=== PATIENT | male | born 1935 | race Caucasian/White ===

== ENCOUNTER 2022-01-25 18:52 | Inpatient (IN) | payer OTHER ==
[~2022-01-25] VITALS: Ht 172.7 cm; Wt 63.0 kg
--- NOTE | 2022-01-25 19:01 | NUR ---
[id number] FROM HOME PER EMS REPORT NEIGHBOR CALLED C/O WEAKNESS X1 WEEK. PT A/OX4. RESP EVEN AND NON LABORED ON R/A. CONNECTED PT TO POX AND MONITOR. SAFETY MEASURES IN PLACE.
[2022-01-25] MEDS ORDERED: IV NS 0.9% 1,000 ML BAG IV ONE (19:30)
--- NOTE | 2022-01-25 19:40 | NUR ---
COVID ANTIGEN SWAB COLLECTED AND SENT TO LAB
--- NOTE | 2022-01-25 19:40 | NUR ---
LAC #20G S/L BLOOD COLLECTED AND SENT TO LAB. PT NOT ABLE TO URINATE AT THIS TIME. WILL F/U
--- NOTE | 2022-01-25 19:41 | NUR ---
US TECH AT PT'S BEDSIDE
--- NOTE | 2022-01-25 19:55 | NUR ---
PT TAKEN TO CT VIA JESSICA
[2022-01-25] MEDS ORDERED: MAGNESIUM HYDROXIDE 30 ML UDC PO PRN (20:00)
[2022-01-25] MEDS ORDERED: MAG HYDROX/AL HYDROX/SIMETH 30 ML UDC PO PRN (20:00)
[2022-01-25] MEDS ORDERED: ONDANSETRON HCL/PF 4 MG/2 ML VIAL IVP PRN (20:00)
[2022-01-25] MEDS ORDERED: ZOLPIDEM TARTRATE 5 MG TABLET PO PRN (20:00)
[2022-01-25] MEDS ORDERED: ACETAMINOPHEN 325 MG TABLET PO PRN (20:00)
[2022-01-25] MEDS ORDERED: Z GUARD REMEDY 4 OZ OINT TP PRN (20:00)
[2022-01-25 20:02] LABS: BASOPHILS % (AUTO) 0.1 % (0.0-2.0); HEMATOCRIT 35 % (39-51); HEMOGLOBIN 12.1 g/dL (13.5-17.5); LYMPHOCYTES # (AUTO) 0.7 K/uL (0.8-4.8); LYMPHOCYTES % (AUTO) 4.7 % (20.0-44.0); MEAN CORPUSCULAR HGB CONC 35 g/dl (31.0-36.0); MEAN CORPUSCULAR VOLUME 94 fL (80-96); MONOCYTES # (AUTO) 0.6 K/uL (0.1-1.30); MONOCYTES % (AUTO) 3.8 % (2.0-12.0); NEUTROPHILS # (AUTO) 13.7 K/uL (1.8-8.9); NEUTROPHILS % (AUTO) 91.4 % (43.0-81.0); RED BLOOD CELL COUNT(AUTO) 3.69 MIL/uL (4.5-6.0)
[2022-01-25 20:10] LABS: CALCIUM, SERUM 8.6 mg/dL (8.5-10.1); CARBON DIOXIDE 23 mmol/L (21-32); CHLORIDE 92 mmol/L (98-107); GLUCOSE 143 mg/dL (74-106); SODIUM SERUM 134 mmol/L (136-145)
--- NOTE | 2022-01-25 20:19 | NUR ---
potassium 2.1 bun 91
[2022-01-25 20:22] LABS: PLATELET COUNT (AUTO) 285 K/uL (150-450)
[2022-01-25 20:24] LABS: ALANINE AMINOTRANSFERASE 146 U/L (12-78); ALBUMIN 1.8 g/dL (3.4-5.0); ALKALINE PHOSPHATASE 495 U/L (46-116); ASPARTATE AMINOTRANSFERASE 214 U/L (15-37); BILIRUBIN,DIRECT 26.2 mg/dL (0.0-0.2); BILIRUBIN,TOTAL 33.3 mg/dL (0.2-1.0); TOTAL PROTEIN, SERUM 6.5 g/dL (6.4-8.2)
[2022-01-25 20:26] LABS: POTASSIUM 2.1 mmol/L (3.5-5.1); UREA NITROGEN, BLOOD 91 mg/dL (7-18)
[2022-01-25] MEDS ORDERED: POTASSIUM CL. PREMIX PERIPHER. 50 ML IV SCH (20:30)
[2022-01-25] MEDS ORDERED: LIDOCAINE 2% JEL UROJET 10 ML MM ONE (20:33)
--- NOTE | 2022-01-25 20:43 | NUR ---
URINE COLLECTED AND SENT TO LAB
[2022-01-25] MEDS: POTASSIUM CL. PREMIX PERIPHER. 50 ML IV SCH ×3 (20:57→23:12)
[2022-01-25 21:05] LABS: BILIRUBIN,URINE LARGE (NEGATIVE); LEUKOCYTE ESTERASE ,URINE NEGATIVE (NEGATIVE); NITRITE, URINE NEGATIVE (NEGATIVE); PH,URINE 5.5 (5.0-8.0); PROTEIN,URINE 30 mg/dl (NEGATIVE); UGLUCOSE 100 MG/DL mg/dL (NEGATIVE)
[2022-01-25 21:20] LABS: COLOR,URINE BROWN (YELLOW)
[2022-01-25 21:25] LABS: BAND % (MANUAL) 1 % (0.0-5.0); LYMPHOCYTES % (MANUAL) 3 % (16-48); MONOCYTES % (MANUAL) 1 % (0-11.0); NEUTROPHILS % (MANUAL) 95 (42-76)
[2022-01-25 21:29] LABS: BACTERIA,URINE 1+ /HPF (None Seen); WBC,URINE 0-2 /HPF (0-3)
--- NOTE | 2022-01-25 22:10 | NUR ---
RAC #20G S/L PATENT AND INTACT
[2022-01-25] MEDS ORDERED: METO200T49 PO (22:24)
[2022-01-25] MEDS ORDERED: POTASSIUM CL. PREMIX PERIPHER. 50 ML ONE (22:54)
[2022-01-26] MEDS ORDERED: POTASSIUM CL. PREMIX PERIPHER. 50 ML ONE (00:13)
[2022-01-26] MEDS: POTASSIUM CL. PREMIX PERIPHER. 50 ML IV SCH ×6 (00:14→22:49)
--- NOTE | 2022-01-26 00:29 | NUR ---
LORRAINE LONDON DNP AT PT'S BEDSIDE FOR HOMAAL
[2022-01-26] MEDS ORDERED: PIPERACILLIN /TAZOBACTAM 3.375 G in IV D5W 50 ML IV ONE (01:00)
[2022-01-26] MEDS ORDERED: PIPERACILLIN /TAZOBACTAM 3.375 G VIAL IV ONE (01:01)
--- NOTE | 2022-01-26 01:08 | NUR ---
REPOPRT GIVEN TO MARILU IN [place].
[2022-01-26] MEDS: IV NS 0.9% 1,000 ML IV PRN ×2 (02:40→11:02)
--- NOTE | 2022-01-26 02:45 | NUR ---
PT transferred to [facility] room 109 via acls protocol. VSS. All belongings with PT.
--- NOTE | 2022-01-26 02:50 | NUR ---
RN NOTES ADMITTED A 86 Y/O MALE PATIENT FROM ER VIA RSTEELE. PATIENT IS A/O X 3 ABLE TO MAKE NEEDS KNOWN. ON ROOM AIR SATING 99% NO SOB NO DISTRESS NOTED AT THIS TIME. SAFELY TRANSFER PATIENT TO BED. COMPLETE BODY ASSESSMENT DONNE. SKIN IS INTACT. BELONGINGS CHECKED AND RECORDED. IV ACCESS AT L AC# 20 PATENT. IV FLUIDS NS 25CC/HR STARTED. ALL SAFETY MEASURES IN PLACE. HOB ELEVATED. CALL LIGHT WITHIN REACH. WILL CLOSELY MONITOR THE PATIENT
[2022-01-26 04:00] VITALS: BP 145/72
[2022-01-26 06:36] LABS: BASOPHILS % (AUTO) 0.1 % (0.0-2.0); HEMATOCRIT 33 % (39-51); HEMOGLOBIN 11.3 g/dL (13.5-17.5); LYMPHOCYTES # (AUTO) 0.5 K/uL (0.8-4.8); LYMPHOCYTES % (AUTO) 4.1 % (20.0-44.0); MEAN CORPUSCULAR HGB CONC 34 g/dl (31.0-36.0); MEAN CORPUSCULAR VOLUME 95 fL (80-96); MONOCYTES # (AUTO) 0.4 K/uL (0.1-1.30); MONOCYTES % (AUTO) 3.6 % (2.0-12.0); NEUTROPHILS # (AUTO) 11.4 K/uL (1.8-8.9); NEUTROPHILS % (AUTO) 92.2 % (43.0-81.0); PLATELET COUNT (AUTO) 226 K/uL (150-450); RED BLOOD CELL COUNT(AUTO) 3.48 MIL/uL (4.5-6.0); WHITE BLOOD COUNT (AUTO) 12.4 K/uL (4.3-11.0)
[2022-01-26 06:46] LABS: SERUM AMMONIA 36 umol/L (11-32)
--- NOTE | 2022-01-26 06:52 | NUR ---
RN NOTES PATIENT REMAINS STABLE NO SIGNIFICANT CHANGES. IV ACCESS PATENT WITH IV FLUIDS RUNNING AT 125CC/HR. NO SOB NO DISTRESS. ALL SAFETY MEASURES IN PLACE HOB ELEVATED. CALL LIGHT WITHIN REACH. WILL ENDORSED TO MORNING SHIFT FOR NIKKI
[2022-01-26 06:58] LABS: ALANINE AMINOTRANSFERASE 130 U/L (12-78); ALBUMIN 1.5 g/dL (3.4-5.0); ALKALINE PHOSPHATASE 428 U/L (46-116); ASPARTATE AMINOTRANSFERASE 193 U/L (15-37); BILIRUBIN,TOTAL 28.8 mg/dL (0.2-1.0); CALCIUM, SERUM 8.2 mg/dL (8.5-10.1); CARBON DIOXIDE 23 mmol/L (21-32); CHLORIDE 100 mmol/L (98-107); CREATININE 2.8 mg/dL (0.6-1.3); GLUCOSE 123 mg/dL (74-106); LIPASE 74 U/L (73-393); MAGNESIUM 2.2 mg/dL (1.8-2.4); PHOSPHORUS 3.2 mg/dL (2.5-4.9); SODIUM SERUM 138 mmol/L (136-145)
--- NOTE | 2022-01-26 07:30 | NUR ---
PROJECT SURVEYOR AM NOTES PT IN BED, A/O X 3, ABLE TO MAKE NEEDS KNOWN. ON ROOM AIR O2 SAT 98% NO SOB NO DISTRESS, RESPIRATION UNLABORED, ST HR 106 ON MONITOR, DENIES PAIN, SKIN IS JAUNDICED, GENERALIZED, IV ACCESS TO LACG G 20 FLUSHES WELL, SITE CLEAR, WITH NS AT 125 ML/HR INFUSING WELL, USES URINAL, DARK TEA COLORED URINE, NO SKIN ISSUES, ON CLEAR LIQUID DIET, POC DISCUSSED, VERBALIZED UNDERSTANDING, ALL SAFETY MEASURES IN PLACE. HOB ELEVATED. CALL LIGHT WITHIN REACH. WILL CLOSELY MONITOR THE PATIENT. FOR MRCP WITHOUT CONTRAST TODAY.
[2022-01-26 08:00] VITALS: BP 138/65
[2022-01-26 08:06] LABS: UREA NITROGEN, BLOOD 83 mg/dL (7-18)
[2022-01-26 08:08] LABS: TOTAL PROTEIN, SERUM 5.6 g/dL (6.4-8.2)
[2022-01-26] MEDS: PANTOPRAZOLE 40 MG VIAL IV SCH ×2 (09:02→20:36)
[2022-01-26] MEDS: PIPERACILLIN /TAZOBACTAM 2.25 G in IV D5W 50 ML IV SCH ×2 (09:03→16:47)
[2022-01-26 09:17] VITALS: BP 138/65
--- NOTE | 2022-01-26 09:30 | NUR ---
RN NOTES DUE MEDS GIVEN
[2022-01-26] MEDS ORDERED: POTASSIUM CHLORIDE 10 MEQ TABLET.SA PO ONE ×2 (11:00→14:00)
[2022-01-26] MEDS ORDERED: POTASSIUM CHLORIDE 10 MEQ/50 ML PREMIXED IVPB FOR PERIPHERAL LINE IV ONE ×2 (11:00→22:30)
[2022-01-26 12:00] VITALS: BP 122/66
[2022-01-26] MEDS ORDERED: ANESTHESIA TRAY IN PYXIS 1 EA TRAY MC ONE (14:22)
--- NOTE | 2022-01-26 15:01 | NUR ---
RN NOTES PATIENT CAME FROM MRI. PER DR. JAMES, CANCEL MRCP AND EGD FOR TODAY, INSTEAD WILL DO ERCP. SCHEDULE TO BE DETERMINED. Addendum: 01/27/22 at 1828 by NA GUAJARDO RN RN NOTES MRI/MRCP DONE.
[2022-01-26 16:00] VITALS: BP 121/68
--- NOTE | 2022-01-26 18:36 | NUR ---
SHEEP BONER CLOSING NOTES PT IN BED, A/O X 3, ABLE TO MAKE NEEDS KNOWN. ON ROOM AIR O2 SAT 97% NO SOB NO DISTRESS, RESPIRATION UNLABORED, ST HR 99 ON MONITOR, DENIES PAIN, SKIN IS JAUNDICED, GENERALIZED, IV ACCESS TO LAC G 20 FLUSHES WELL, SITE CLEAR, WITH NS AT 125 ML/HR INFUSING WELL, USES URINAL, DARK TEA COLORED URINE, NO SKIN ISSUES, ON FULL LIQUID DIET, POC DISCUSSED, VERBALIZED UNDERSTANDING, ALL SAFETY MEASURES IN PLACE. HOB ELEVATED. CALL LIGHT WITHIN REACH. WILL ENDORSE TO NEXT SHIFT FOR NIKKI. MRCP DONE TODAY AWAITING RESULT. FOR ERCP AND EGD. SCHEDULE TO BE DETERMINED.
--- NOTE | 2022-01-26 19:47 | NUR ---
RAIL MANAGER OPENING NOTES RECEIVED PT IN BED, A/O X 3, ABLE TO MAKE NEEDS KNOWN. ON ROOM AIR O2 SAT 98% NO SOB NO DISTRESS, RESPIRATION EVEN AND UNLABORED, ON TELE MONITORING CURRENTLY READING SR, DENIES PAIN, SKIN IS JAUNDICED, GENERALIZED, IV ACCESS TO LAC #20G INTACT, PATENT, FLUSHES WELL, WITH NS AT 125 ML/HR INFUSING WELL, USES URINAL, DARK TEA COLORED URINE, NO SKIN ISSUES, ON FULL LIQUID DIET, ALL SAFETY MEASURES IN PLACE. HOB ELEVATED. CALL LIGHT WITHIN REACH. BED IN LOWEST AND LOCKED POSITION, WILL CLOSELY MONITOR THE PATIENT.
[2022-01-26 20:00] VITALS: BP 103/63
[2022-01-26 20:40] LABS: CALCIUM, SERUM 8.4 mg/dL (8.5-10.1); CARBON DIOXIDE 23 mmol/L (21-32); CHLORIDE 105 mmol/L (98-107); CREATININE 2.6 mg/dL (0.6-1.3); GLUCOSE 150 mg/dL (74-106); SODIUM SERUM 139 mmol/L (136-145); UREA NITROGEN, BLOOD 75 mg/dL (7-18)
[2022-01-26 20:49] LABS: POTASSIUM 2.7 mmol/L (3.5-5.1)
--- NOTE | 2022-01-26 22:18 | NUR ---
RN NOTE LAB RESULTED WITH POTASSIUM AT 2.7. INFORMED VALUE ANALYSIS COORDINATOR LORRAINE, HE THEN ORDERED 40 MEQ POTASSIUM IV TO BE INFUSED FOR 4 HRS. ORDER TAKEN AND CARRIED OUT. WILL CONT TO MONITOR.
[2022-01-27] VITALS: BP 119/70
[2022-01-27] MEDS: POTASSIUM CL. PREMIX PERIPHER. 50 ML IV SCH ×3 (00:01→02:38)
[2022-01-27] MEDS: IV NS 0.9% 1,000 ML IV PRN ×3 (00:29→20:50)
[2022-01-27] MEDS: PIPERACILLIN /TAZOBACTAM 2.25 G in IV D5W 50 ML IV SCH ×3 (00:32→16:55)
[2022-01-27 04:00] VITALS: BP 120/66
[2022-01-27 06:19] LABS: BASOPHILS % (AUTO) 0.2 % (0.0-2.0); EOSINOPHILS % (AUTO) 0.3 % (0.0-6.0); HEMATOCRIT 31 % (39-51); HEMOGLOBIN 10.5 g/dL (13.5-17.5); LYMPHOCYTES # (AUTO) 0.6 K/uL (0.8-4.8); LYMPHOCYTES % (AUTO) 7.5 % (20.0-44.0); MEAN CORPUSCULAR HGB CONC 34 g/dl (31.0-36.0); MEAN CORPUSCULAR VOLUME 95 fL (80-96); MONOCYTES # (AUTO) 0.4 K/uL (0.1-1.30); MONOCYTES % (AUTO) 4.9 % (2.0-12.0); NEUTROPHILS # (AUTO) 7.2 K/uL (1.8-8.9); NEUTROPHILS % (AUTO) 87.1 % (43.0-81.0); PLATELET COUNT (AUTO) 219 K/uL (150-450); RED BLOOD CELL COUNT(AUTO) 3.23 MIL/uL (4.5-6.0); WHITE BLOOD COUNT (AUTO) 8.2 K/uL (4.3-11.0)
--- NOTE | 2022-01-27 06:56 | NUR ---
ANIMAL CYTOLOGIST CLOSING NOTES PT IN BED, A/O X 3, ABLE TO MAKE NEEDS KNOWN. ON ROOM AIR O2 SAT 100% NO SOB NO DISTRESS, RESPIRATION EVEN AND UNLABORED, ON TELE MONITORING CURRENTLY READING SR AT 95, DENIES PAIN, SKIN IS JAUNDICED, GENERALIZED, IV ACCESS TO LAC #20G INTACT, PATENT, FLUSHES WELL, WITH NS AT 125 ML/HR INFUSING WELL, USES URINAL, DARK TEA COLORED URINE, NO SKIN ISSUES, ON FULL LIQUID DIET, ALL DUE MEDS GIVEN, KEPT DRY AND CLEAN, ALL SAFETY MEASURES IN PLACE. HOB ELEVATED. CALL LIGHT WITHIN REACH. BED IN LOWEST AND LOCKED POSITION, WILL ENDORSE TO AM SHIFT FOR CONTINUITY OF CARE.
[2022-01-27 07:04] LABS: ALANINE AMINOTRANSFERASE 118 U/L (12-78); ALKALINE PHOSPHATASE 373 U/L (46-116); ASPARTATE AMINOTRANSFERASE 154 U/L (15-37); BILIRUBIN,TOTAL 25.7 mg/dL (0.2-1.0); CALCIUM, SERUM 8.3 mg/dL (8.5-10.1); CARBON DIOXIDE 23 mmol/L (21-32); CHLORIDE 107 mmol/L (98-107); CREATININE 2.6 mg/dL (0.6-1.3); GLUCOSE 133 mg/dL (74-106); LIPASE 118 U/L (73-393); MAGNESIUM 2.1 mg/dL (1.8-2.4); PHOSPHORUS 1.6 mg/dL (2.5-4.9); SODIUM SERUM 141 mmol/L (136-145); TOTAL PROTEIN, SERUM 5.3 g/dL (6.4-8.2); UREA NITROGEN, BLOOD 67 mg/dL (7-18)
--- NOTE | 2022-01-27 07:30 | NUR ---
PINMAKER AM NOTES PT IN BED, A/O X 3, ABLE TO MAKE NEEDS KNOWN. ON ROOM AIR O2 SAT 99% NO SOB NO DISTRESS, RESPIRATION UNLABORED, SR HR 95 ON MONITOR, DENIES PAIN, SKIN IS JAUNDICED, GENERALIZED, IV ACCESS TO LAC G 20 FLUSHES WELL, SITE CLEAR, WITH NS AT 125 ML/HR INFUSING WELL, USES URINAL, DARK TEA COLORED URINE, NO SKIN ISSUES, ON FULL LIQUID DIET, POC DISCUSSED, VERBALIZED UNDERSTANDING, ALL SAFETY MEASURES IN PLACE. HOB ELEVATED. CALL LIGHT WITHIN REACH. WILL CLOSELY MONITOR THE PATIENT. FOR EGD AND ERCP PER DR. JAMES. SCHEDULE TO BE DETERMINED.
[2022-01-27 07:36] LABS: ALBUMIN 1.4 g/dL (3.4-5.0); POTASSIUM 2.7 mmol/L (3.5-5.1)
[2022-01-27 08:00] VITALS: BP 132/78
[2022-01-27] MEDS: PANTOPRAZOLE 40 MG VIAL IV SCH ×2 (08:48→20:47)
[2022-01-27] MEDS ORDERED: NEUTRA PHOS 1 POWD.PACKET PO ONE (09:00)
[2022-01-27] MEDS: POTASSIUM CHLORIDE 10 MEQ/50 ML PREMIXED IVPB FOR PERIPHERAL LINE IV SCH ×4 (09:20→12:24)
--- NOTE | 2022-01-27 09:30 | NUR ---
RN NOTES DUE MEDS GIVEN
[2022-01-27 12:00] VITALS: BP 120/69
[2022-01-27 16:00] VITALS: BP 120/66
--- NOTE | 2022-01-27 18:28 | NUR ---
FAMILY WELFARE SOCIAL WORK PROFESSOR CLOSING NOTES PT IN BED, A/O X 3, ABLE TO MAKE NEEDS KNOWN. ON ROOM AIR O2 SAT 97% NO SOB NO DISTRESS, RESPIRATION UNLABORED, ST HR 110 ON MONITOR, DENIES PAIN, SKIN IS JAUNDICED, GENERALIZED, IV ACCESS TO LAC G 20 FLUSHES WELL, SITE CLEAR, WITH NS AT 125 ML/HR INFUSING WELL, USES URINAL, DARK TEA COLORED URINE, NO SKIN ISSUES, ON FULL LIQUID DIET, ALL SAFETY MEASURES IN PLACE. HOB ELEVATED. CALL LIGHT WITHIN REACH. WILL ENDORSE TO NEXT SHIFT FOR NIKKI. POTASSIUM REPLACED. FOR ERCP AND EGD. SCHEDULE TO BE DETERMINED.
--- NOTE | 2022-01-27 19:25 | NUR ---
RN OPENING NOTE PATIENT IN BED, EYES CLOSED, SLEEPING. PATIENT IS /O X 3, ABLE TO MAKE NEEDS KNOWN. PATIENT IS ON RA, TOLERATING WELL, NO SOB OR RESPIRATORY DISTRESS NOTED. PATIENT'S TELE MONITOR READS AFIB WITH PVCS 103 AT THIS TIME. PATIENT HAS A LAC 20 G WITH NS AT 125 ML/HR ONGOING, INFUSING WELL. PATIENT DOES NOT REPORT ANY PAIN AT THIS TIME. SAFETY MEASURES IN PLACE: BED LOCKED AND IN LOWEST POSITION, CALL LIGHT WITHIN REACH, SIDE RAILS UP. WILL MONITOR PATIENT CLOSELY.
[2022-01-27 20:00] VITALS: BP 126/77
[2022-01-28] VITALS: BP 139/64
[2022-01-28] MEDS: PIPERACILLIN /TAZOBACTAM 2.25 G in IV D5W 50 ML IV SCH ×3 (01:34→18:11)
[2022-01-28 04:00] VITALS: BP 134/72
[2022-01-28] MEDS: IV NS 0.9% 1,000 ML IV PRN (06:41)
--- NOTE | 2022-01-28 06:49 | NUR ---
RN CLOSING NOTE PATIENT IN BED, EYES CLOSED, SLEEPING. PATIENT IS /O X 3, ABLE TO MAKE NEEDS KNOWN. PATIENT IS ON RA, TOLERATING WELL, NO SOB OR RESPIRATORY DISTRESS NOTED. PATIENT'S TELE MONITOR READS AFIB WITH PVCS 110 AT THIS TIME. PATIENT HAS A LAC 20 G WITH NS AT 125 ML/HR ONGOING, INFUSING WELL. PATIENT DOES NOT REPORT ANY PAIN AT THIS TIME. SAFETY MEASURES IN PLACE: BED LOCKED AND IN LOWEST POSITION, CALL LIGHT WITHIN REACH, SIDE RAILS UP. ALL NEEDS MET AND ATTENDED. ALL ORDERS CARRIED OUT. WILL ENDORSE TO DAY SHIFT NURSE FOR NIKKI.
--- NOTE | 2022-01-28 07:27 | NUR ---
POACHER OPERATOR OPENING NOTES: RECEIVED PATIENT IN BED, ASLEEP BUT EASILY AROUSES TO VOICE AND TACTILE STIMULI. PATIENT IS ALERT, ORIENTED X 3. NO SOB NOTED AT THIS TIME, BREATHING EVEN AND UNLABORED. ON RA WITH OXYGEN SATURATION OF 97%. ON A-FIB PER TELE MONITOR WITH HR OF 97. NO C/O CHEST PAIN OR DISCOMFORT AT THIS TIME. PATIENT HAS IV FLUID OF NS RUNNING @ 125 ML/HR VIA LEFT ANTECUBITAL AREA, PATENT AND NO S/S OF INFILTRATION NOTED. CALL LIGHT WITHIN REACH AND INSTRUCTED PATIENT TO PLEASE CALL WHENEVER HE NEEDS TO GO TO THE BATHROOM FOR SAFETY. ARACELY AGREED AND UNDERSTOOD. BED LOCKED AND IN LOWEST POSITION. ALL SAFETY MEASURES IN PLACE. WILL CONTINUE TO MONITOR PATIENT THROUGHOUT SHIFT.
[2022-01-28 08:00] VITALS: BP 129/85
[2022-01-28] MEDS: PANTOPRAZOLE 40 MG VIAL IV SCH (08:22)
[2022-01-28] MEDS: PANTOPRAZOLE 40 MG/PACK PACK PO SCH ×2 (09:00→22:44)
[2022-01-28 12:00] VITALS: BP 115/74
[2022-01-28 12:27] LABS: CALCIUM, SERUM 8.2 mg/dL (8.5-10.1); CARBON DIOXIDE 21 mmol/L (21-32); CHLORIDE 107 mmol/L (98-107); CREATININE 2.1 mg/dL (0.6-1.3); GLUCOSE 107 mg/dL (74-106); POTASSIUM 3.4 mmol/L (3.5-5.1); SODIUM SERUM 138 mmol/L (136-145); UREA NITROGEN, BLOOD 50 mg/dL (7-18)
--- NOTE | 2022-01-28 13:50 | NUR ---
ECHOCARDIOGRAM DONE AT BEDSIDE, PATENT TOLERATED IT WELL
[2022-01-28] MEDS ORDERED: ANESTHESIA TRAY IN PYXIS 1 EA TRAY MC ONE (14:59)
[2022-01-28] MEDS ORDERED: IOHEXOL 240MG/ML 50 ML IV ONE (15:05)
[2022-01-28] MEDS ORDERED: INDOMETHACIN 50 MG SUPP.RECT ONE (15:05)
--- NOTE | 2022-01-28 15:29 | NUR ---
SPOKE WITH [facility] @ EXT [id number] AND SAID THAT THE PATIENT WILL BE PICKED UP @ 1830 FOR THE ERCP.
[2022-01-28 16:00] VITALS: BP 145/86
--- NOTE | 2022-01-28 16:25 | NUR ---
NOTED THAT THE PATIENT'S IV WAS OUT, TRIED TO REINSERT THE PATIENT'S IV BUT WAS UNSUCCESSFUL, CALLED CHARGE NURSE AND TRIED SEVERAL TIMES BUT WAS NOT ABLE TO GET A NEW IV ACCESS. NURSING CARE MANAGER CNA NOTIFIED.
--- NOTE | 2022-01-28 18:09 | NUR ---
ALEISHA MIDLINE NURSE CAME TO INSERT PATIENT'S MIDLINE ON LEFT UPPER ARM GAUGE # 18, PATIENT TOLERATED WELL, IV PATENT AND FLUSHES WELL. RESTARTED IV INFUSION OF NS @ 80 ML/HR
--- NOTE | 2022-01-28 18:38 | NUR ---
REGULATOR ASSEMBLER CLOSING NOTES: PATIENT IN BED, AWAKE, ALERT, ORIENTED X 3. NO RESPIRATORY DISTRESS NOTED AT THIS TIME, NO SOB. ON RA WITH OXYGEN SATURATION OF 99%. ON A-FIB PER TELE MONITOR WITH HR OF 94. IV FLUID OF NS RUNNING @ 80 ML/HR VIA LEFT UPPER ARM MIDLINE # 18 G, SITE PATENT AND NO S/S OF INFILTRATION NOTED. EMPTIED 825 ML OF TEAL COLORED URINE, NO SEDIMENTATION NOTED. CALL LIGHT WITHIN REACH. BED LOCKED AND IN LOWEST POSITION. ALL SAFETY MEASURES IMPLEMENTED. PATIENT REMAINS TO BE NPO, AWAITING TO BE PICKED UP FOR ERCP. WILL ENDORSE TO NEXT SHIFT NURSE FOR CONTINUITY OF CARE.
--- NOTE | 2022-01-28 19:11 | NUR ---
PATIENT WAS PICKED UP FOR ERCP PROCEDURE. PATIENT LEFT VIA GURNEY IN NO APPARENT DISTRESS ACCOMPANIED BY TWO NURSES.
[2022-01-28 21:25] VITALS: BP 133/70
--- NOTE | 2022-01-28 21:25 | NUR ---
Received patient at this time from OR , patient asleep with stable vital sings, 133/62, 72, 100% RA, 17 no no s/s of respiratory distress with recommendations from dr Holcomb to transfer patient to higher level of care, will continue to monitor closely.
[2022-01-28] MEDS: CHOLESTYRAMINE/ASPARTAME 4 G/PKT PACKET PO SCH (22:44)
[2022-01-29] VITALS: BP 151/84
[2022-01-29] MEDS: PIPERACILLIN /TAZOBACTAM 2.25 G in IV D5W 50 ML IV SCH ×3 (01:48→16:58)
[2022-01-29 04:00] VITALS: BP 122/76
--- NOTE | 2022-01-29 06:34 | NUR ---
RN CLOSING NOTE, PATIENT ASLEEP, AROUSES TO VERBAL STIMULI, AT 2LPM VIA NC, NO SOB/ACUTE DISTRESS DURING THE NIGHT, AFIB CONTROLLED IN TELE MONITOR, PETRA MIDLINE IN PLACE AND IVF ORDER INFUSING, PT TOLERATED WELL, VERY JAUNDICE, S/P ERCP NO INTERVENTION DONE PER DR JAMES ALL SAFETY MEASURES MAINTAINED, CALL LIGHT WITHIN REACH, BED LOCKED AND LOWEST POSITION, BED ALARM ON, SIDE RAILS UP X2, WILL ENDORSE CONTINUITY OF CARE TO ONCOMING NURSE.
[2022-01-29 07:11] LABS: BASOPHILS % (AUTO) 0.1 % (0.0-2.0); EOSINOPHILS % (AUTO) 0.7 % (0.0-6.0); HEMATOCRIT 29 % (39-51); LYMPHOCYTES # (AUTO) 0.6 K/uL (0.8-4.8); LYMPHOCYTES % (AUTO) 9.3 % (20.0-44.0); MEAN CORPUSCULAR HGB CONC 34 g/dl (31.0-36.0); MEAN CORPUSCULAR VOLUME 95 fL (80-96); MONOCYTES # (AUTO) 0.2 K/uL (0.1-1.30); MONOCYTES % (AUTO) 3.7 % (2.0-12.0); NEUTROPHILS # (AUTO) 5.8 K/uL (1.8-8.9); NEUTROPHILS % (AUTO) 86.2 % (43.0-81.0); PLATELET COUNT (AUTO) 176 K/uL (150-450); RED BLOOD CELL COUNT(AUTO) 3.08 MIL/uL (4.5-6.0); WHITE BLOOD COUNT (AUTO) 6.7 K/uL (4.3-11.0)
[2022-01-29 07:34] LABS: ALANINE AMINOTRANSFERASE 92 U/L (12-78); ALKALINE PHOSPHATASE 318 U/L (46-116); ASPARTATE AMINOTRANSFERASE 107 U/L (15-37); BILIRUBIN,TOTAL 19.9 mg/dL (0.2-1.0); CALCIUM, SERUM 7.9 mg/dL (8.5-10.1); CARBON DIOXIDE 21 mmol/L (21-32); CHLORIDE 109 mmol/L (98-107); GLUCOSE 85 mg/dL (74-106); MAGNESIUM 1.7 mg/dL (1.8-2.4); PHOSPHORUS 2.4 mg/dL (2.5-4.9); SODIUM SERUM 142 mmol/L (136-145); TOTAL PROTEIN, SERUM 5.2 g/dL (6.4-8.2); UREA NITROGEN, BLOOD 41 mg/dL (7-18)
[2022-01-29 07:42] LABS: ALBUMIN 1.4 g/dL (3.4-5.0); POTASSIUM 2.2 mmol/L (3.5-5.1)
[2022-01-29 08:00] VITALS: BP 138/72
--- NOTE | 2022-01-29 08:00 | NUR ---
RESTAURANT CULINARY MANAGER NOTE pATIENT IS IN THE BED, A&O X3. o2 SAT 100%. PATIENT IS ON TELEMONITOR. AFIB, HEART RATE 96. PATIENT ON IV FLUIDS NS @ 80 ML/HR. LEFT UPPER ARM MIDLINE. MIDLINE INTACT AND FLUSH WELL. NO SOB NOTED. CALL LIGHT WAS WITHIN REACH. BED LOWEST AND LOWEST AND LOCKED POSITION. WILL CONTINUE TO MONITOR.
[2022-01-29] MEDS: PANTOPRAZOLE 40 MG/PACK PACK PO SCH ×2 (08:24→22:04)
[2022-01-29] MEDS: CHOLESTYRAMINE/ASPARTAME 4 G/PKT PACKET PO SCH ×2 (08:25→22:04)
[2022-01-29] MEDS: IV NS 0.9% 1,000 ML IV PRN (08:29)
--- NOTE | 2022-01-29 08:46 | NUR ---
telephone interviewer note Doctor Ayden Wilson notified potassium is 2.2. Ordered potassium 80 mEq, IV.
[2022-01-29] MEDS: POTASSIUM CL. PREMIX PERIPHER. 50 ML IV SCH ×8 (09:30→17:16)
[2022-01-29] MEDS ORDERED: NEUTRA PHOS 1 POWD.PACKET PO ONE (10:00)
--- NOTE | 2022-01-29 10:30 | NUR ---
BOOKSTORE CLERK NOTE USING URINAL ABLE TO URINATE MTATHE[place] COLOR URINE ,ALL NEEDS ATTENDED
[2022-01-29 12:00] VITALS: BP 137/80
[2022-01-29 12:12] LABS: EOSINOPHILS % (MANUAL) 2 % (0-4); LYMPHOCYTES % (MANUAL) 7 % (16-48); MONOCYTES % (MANUAL) 3 % (0-11.0); NEUTROPHILS % (MANUAL) 88 (42-76)
--- NOTE | 2022-01-29 12:30 | NUR ---
POLICE CLERK NOTE HAVING LUNCH ,EAT CLEAR LIQUID ,HAS POOR APPETITE
[2022-01-29 15:44] LABS: THYROID STIMULATING HORMONE 0.031 uIU/mL (0.358-3.74)
[2022-01-29 16:00] VITALS: BP 133/75
--- NOTE | 2022-01-29 16:00 | NUR ---
PARTS COUNTER REPRESENTATIVE NOTE TURN REPOSITION , ALL NEEDS ATTENDED, CONT ON KCL INFUSING
[2022-01-29] MEDS ORDERED: Magnesium 1GM/D5W 100ML PREMIX 100 ML IV SCH (18:00)
--- NOTE | 2022-01-29 18:39 | NUR ---
HARVEST CONTRACTOR NOTE RESTING COMFORTABLY ASSISTED TO HAVE DINNER, ON 2L NC,NO SOB NOTED AT THIS TIME,ABLE TO USE URINAL ON IVF ORDERED ,WILL CONT TO MONITOR
[2022-01-29 20:00] VITALS: BP 124/75
--- NOTE | 2022-01-29 20:00 | NUR ---
RN OPEN NOTE: PATIENT AWAKE, AROUSES TO VERBAL STIMULI, AT 2LPM VIA NC, NO SOB/ACUTE DISTRESS. ON TELE MONITOR WITH A READING OF AFIB CONTROLLED WITH OCCASIONAL PVC'S. PETRA MIDLINE IN PLACE AND IVF ORDER INFUSING NS NS 80ML/HR. PT TOLERATED WELL. IV SITE PATENT NO S/S OF COMPLICATIONS. SAFETY MEASURES MAINTAINED. REPOSITIONED WITH PILLOWS.HOB ELEVATED SEMI-FOWLERS POSITION, CALL LIGHT WITHIN REACH, BED LOCKED AND LOWEST POSITION, BED ALARM ON, SIDE RAILS UP X2.
[2022-01-29] MEDS: HEPARIN SODIUM, PORCINE 5000 UNITS/1 ML VIAL SQ SCH (22:06)
--- NOTE | 2022-01-29 23:00 | NUR ---
RN NOTE: HEMANTH FROM [facility] CALLED AND STATED NO BED AT THIS TIME AND THAT WAITING ON BED TO BE AVAILABLE AND WILL FOLLOW UP WITH [facility] CASE MANAGEMENT IN AM.
[2022-01-30] VITALS: BP 137/80
[2022-01-30] MEDS: PIPERACILLIN /TAZOBACTAM 2.25 G in IV D5W 50 ML IV SCH ×3 (01:31→17:17)
[2022-01-30 04:00] VITALS: BP 132/64
[2022-01-30] MEDS: IV NS 0.9% 1,000 ML IV PRN ×2 (04:24→14:12)
--- NOTE | 2022-01-30 06:59 | NUR ---
RN CLOSING NOTE: PATIENT AWAKE, AROUSES TO VERBAL STIMULI, AT 2LPM VIA NC, NO SOB/ACUTE DISTRESS SATING AT 100%. ON TELE MONITOR WITH A READING OF AFIB CONTROLLED 96-110. PETRA MIDLINE IN PLACE AND IVF ORDER INFUSING NS NS 80ML/HR. PT TOLERATED WELL. IV SITE PATENT NO S/S OF COMPLICATIONS. SAFETY MEASURES MAINTAINED. REPOSITIONED WITH PILLOWS.HOB ELEVATED SEMI-FOWLERS POSITION, CALL LIGHT WITHIN REACH, BED LOCKED AND LOWEST POSITION, BED ALARM ON, SIDE RAILS UP X2.
--- NOTE | 2022-01-30 07:20 | NUR ---
RN NOTE Received patient and is AOx4, verbally responsive, able to make needs known, pt on 2LPM of O2 via NC,o2:100% IV PETRA and IV midline in place which is infusing NS 80 mL/hr per physician order. Pending possible transfer to [facility]. Patient bed rails up x2, bed alarm on. Continue to monitor.
[2022-01-30 08:00] VITALS: BP 136/71
[2022-01-30] MEDS: CHOLESTYRAMINE/ASPARTAME 4 G/PKT PACKET PO SCH ×2 (08:11→20:38)
[2022-01-30] MEDS: PANTOPRAZOLE 40 MG/PACK PACK PO SCH ×2 (08:11→20:38)
[2022-01-30] MEDS: HEPARIN SODIUM, PORCINE 5000 UNITS/1 ML VIAL SQ SCH ×2 (08:14→20:57)
[2022-01-30 12:00] VITALS: BP 141/86
[2022-01-30] MEDS ORDERED: PIPE2.257 IV (14:47)
[2022-01-30] MEDS ORDERED: PANT40SU2 PO (14:47)
[2022-01-30] MEDS ORDERED: CHOL4PAC4 PO (14:47)
[2022-01-30] MEDS ORDERED: HEPA50008 SQ (14:47)
[2022-01-30] MEDS ORDERED: SPIR50TA PO (14:57)
[2022-01-30 15:17] LABS: CHLORIDE 105 mmol/L (98-107); MAGNESIUM 1.5 mg/dL (1.8-2.4); PHOSPHORUS 2.4 mg/dL (2.5-4.9); SODIUM SERUM 136 mmol/L (136-145)
[2022-01-30 15:19] LABS: CALCIUM, SERUM 7.4 mg/dL (8.5-10.1); CARBON DIOXIDE 20 mmol/L (21-32); GLUCOSE 73 mg/dL (74-106); POTASSIUM 2.5 mmol/L (3.5-5.1); UREA NITROGEN, BLOOD 29 mg/dL (7-18)
[2022-01-30 15:20] LABS: BILIRUBIN,DIRECT 11.8 mg/dL (0.0-0.2); BILIRUBIN,TOTAL 15.4 mg/dL (0.2-1.0); CREATININE 1.5 mg/dL (0.6-1.3); TOTAL PROTEIN, SERUM 4.8 g/dL (6.4-8.2)
[2022-01-30 15:21] LABS: ALBUMIN 1.3 g/dL (3.4-5.0)
[2022-01-30 16:00] VITALS: BP 136/81
[2022-01-30] MEDS: Magnesium 1GM/D5W 100ML PREMIX 100 ML IV SCH ×4 (16:09→19:31)
[2022-01-30] MEDS: POTASSIUM CL. PREMIX PERIPHER. 50 ML IV SCH ×5 (16:10→20:38)
[2022-01-30] MEDS ORDERED: POTASSIUM CHLORIDE 20 MEQ TAB.PRT.SR PO ONE (17:00)
[2022-01-30] MEDS: POTASSIUM PHOSPHATE MM 7.5 MMOL in IV NS 0.9% 100 ML IV SCH ×2 (17:17→19:31)
--- NOTE | 2022-01-30 18:40 | NUR ---
accepted by [facility] pt. going to [id number] [id number],[facility] rm [address],adwoa rees from [facility] give report 30 minutes prior to eta. [facility] eta 1000pm.endorsed to night rn.nursing sup aware.
--- NOTE | 2022-01-30 18:44 | NUR ---
RN NOTE PATIENT REMAINS ON ALERT ORIENTED X3-4 VERBALLY RESPONSIVE NO SOB NOT ACUTE DISTRESS NOTED,IV SITE IS ON LEFT UPPER ARM MIDLINE INTACT PATENT RECEIVED LABS RESULTS POTASSIUM 2.[address] ROE AND REPLACING POTASSIUM AND MG.ALL DUE MEDS GIVEN MD ORDERED,PATIENT WILL TRANSFER TO [facility] [phone] [place] [address].REPORT WILL GIVE AT 21:30 PATIENT PAINTER ORDNANCE TIME AT 22:00.WILL ENDORSE NEXT COMING SHIFT FOR CONTINUATION OF CARE.
--- NOTE | 2022-01-30 22:46 | NUR ---
DC NOTE PT IS A&O X3, CALM, COOPERATIVE. ON 2L NC WITH O2SAT OF 100%; NO S/S OF RESP DISTRESS, NO SOB OR COUGH, NON-LABORED AND EQUAL BREATHING. HR NOTED TO BE ELEVATED AT 112. PETRA MIDLINE INTACT AND PATENT, FLUSHES EASILY WITH NO RESISTANCE; MAGNESIUM, POTASSIUM CHLORIDE, AND POTASSIUM PHOSPHATE ADMINISTERED VIA PETRA MIDLINE; HEPARIN, PANTOPRAZOLE, AND CHOLESTYRAMINE ALSO ADMINISTERED DURING SHIFT. PT ENDORSED TO AMBULANCE CREW AND [facility] RN WITH MOST RECENT VITAL SIGNS. PT DC'D TO [facility] IN STABLE CONDITION IN THE [facility] ROOM 510. PAPERWORK SIGNED, DC PACKET AND BELONGINGS GIVEN TO AMBULANCE CREW. PT LEFT UNIT VIA GURNEY WITH PETRA MIDLINE IN PLACE; OVERALL STABLE CONDITION.
== END 2022-01-30 23:10 | disposition short-term general hospital (02) | DRG 919 ==
LOC: ER 18:53 → TELE1 01-26 02:01 → MEDSG1 01-30 11:01
PROVIDERS: ADMIT Nurse Practitioner Acute Care; ATTEND Nurse Practitioner Acute Care
PROC: 0FJB8ZZ Inspection of Hepatobiliary Duct, Via Natural or Artificial Opening Endoscopic (ICD-10-PCS; principal; 2022-01-28)
PROC: 05HC33Z Insertion of Infusion Device into Left Basilic Vein, Percutaneous Approach (ICD-10-PCS; 2022-01-28)
DX: T85.898A Other specified complication of other internal prosthetic devices, implants and grafts, initial encounter (principal); E43 Unspecified severe protein-calorie malnutrition; N17.0 Acute kidney failure with tubular necrosis; E87.1 Hypo-osmolality and hyponatremia; J90 Pleural effusion, not elsewhere classified; R64 Cachexia; D68.59 Other primary thrombophilia; K80.50 Calculus of bile duct without cholangitis or cholecystitis without obstruction; E86.0 Dehydration; Y83.8 Other surgical procedures as the cause of abnormal reaction of the patient, or of later complication, without mention of misadventure at the time of the procedure; Y92.009 Unspecified place in unspecified non-institutional (private) residence as the place of occurrence of the external cause; Z20.822 Contact with and (suspected) exposure to COVID-19; D63.8 Anemia in other chronic diseases classified elsewhere; F10.10 Alcohol abuse, uncomplicated; Y90.9 Presence of alcohol in blood, level not specified; K76.9 Liver disease, unspecified; Z79.899 Other long term (current) drug therapy; R74.01 Elevation of levels of liver transaminase levels; K83.8 Other specified diseases of biliary tract; E88.09 Other disorders of plasma-protein metabolism, not elsewhere classified; E87.6 Hypokalemia; I10 Essential (primary) hypertension; E86.1 Hypovolemia; E83.39 Other disorders of phosphorus metabolism; I48.91 Unspecified atrial fibrillation; D72.829 Elevated white blood cell count, unspecified; F41.9 Anxiety disorder, unspecified; N40.0 Benign prostatic hyperplasia without lower urinary tract symptoms; K57.30 Diverticulosis of large intestine without perforation or abscess without bleeding
CPT/HCPCS: 36415; 71045-TC; 74181-TC; 76705-TC; 76770-TC; 80048-TC; 80053-TC; 80076-TC; 81001; 82088; 82140-TC; 82533; 82550-TC; 82565-TC; 83690-TC; 83735-TC; 84100-TC; 84244; 84439-TC; 84443-TC; 85025-TC; 85730-TC; 86850-TC; 87040-TC; 87081-TC; 87086-TC; 94799-TC; C2625; C9113; C9803; G0378; J0330; J1644; J2370; J2543; J2704; J3475; J3480; J3490; J7030; J7050; J7060; Q9966

== ENCOUNTER 2025-03-10 16:16 | Inpatient (IN) | payer MEDICARE, OTHER ==
[~2025-03-10] VITALS: Ht 175.3 cm; Wt 65.3 kg
[~2025-03-10 16:16] MED LIST: CHOL4PAC4 PO; HEPA50008 SQ; PANT40SU2 PO; PIPE2.257 IV; SPIR50TA PO
[2025-03-10 17:19] LABS: PLATELET COUNT (AUTO) 222 K/uL (150-450); RED BLOOD CELL COUNT(AUTO) 4.61 MIL/uL (4.5-6.0); RED CELL DISTRIBUTION WIDTH 14.1 % (11.5-15.0); WHITE BLOOD COUNT (AUTO) 7.6 K/uL (4.3-11.0)
[2025-03-10 17:29] LABS: CALCIUM, SERUM 9.3 mg/dL (8.5-10.1); CREATININE 1.1 mg/dL (0.6-1.3); SERUM AMMONIA 4 umol/L (11-32); SODIUM SERUM 135 mmol/L (136-145); UREA NITROGEN, BLOOD 26 mg/dL (7-18)
[2025-03-10 17:33] LABS: INR 1.08 (0.91-1.10)
[2025-03-10 17:38] LABS: ASPARTATE AMINOTRANSFERASE 32 U/L (15-37); TOTAL PROTEIN, SERUM 7.9 g/dL (6.4-8.2)
[2025-03-10 17:39] LABS: ALCOHOL, BLOOD < 3 mg/dL (0-10)
[2025-03-10] MEDS: IV NS 0.9% 1,000 ML BAG IV ONE ×2 (17:43→19:25)
[2025-03-10] MEDS: LORAZEPAM INJ 2 MG/ML VIAL IV ONE ×2 (17:55→18:17)
[2025-03-10 18:17] LABS: APPEARANCE,URINE CLEAR (CLEAR); BLOOD, URINE 1+ Ery/uL (NEGATIVE); LEUKOCYTE ESTERASE ,URINE NEGATIVE (NEGATIVE); NITRITE, URINE NEGATIVE (NEGATIVE); UGLUCOSE NEGATIVE (NEGATIVE)
[2025-03-10 18:24] LABS: AMPHETAMINE, URINE NEGATIVE (NEGATIVE); BARBITURATE, URINE NEGATIVE (NEGATIVE); BENZODIAZEPINE, URINE NEGATIVE (NEGATIVE); CANNABINOID, URINE NEGATIVE (NEGATIVE); COCCAINE, URINE NEGATIVE (NEGATIVE); OPIATE, URINE NEGATIVE (NEGATIVE)
[2025-03-10 18:28] LABS: ADD URINE CULTURE NO; SQUAMOUS EPITHELIAL CELL,UR None Seen /HPF (None Seen)
[2025-03-10] MEDS ORDERED: CEFTRIAXONE 1GM BAG (ER ONLY) 50 ML IV ONE (19:23)
[2025-03-10 19:25] LABS: LACTIC ACID 2.6 mmol/L (0.4-2.0)
[2025-03-10] MEDS: CEFTRIAXONE 1 G in IV D5W 50 ML IV ONE (19:25)
[2025-03-10] MEDS ORDERED: IPRATROPIUM NEB FS 0.5 MG/2.5 ML AMPUL.NEB NEB PRN (19:30)
[2025-03-10] MEDS ORDERED: ALBUTEROL FS 2.5 MG/3 ML VIAL.NEB NEB PRN (19:30)
[2025-03-10] MEDS ORDERED: MAG HYDROX/AL HYDROX/SIMETH 30 ML UDC PO PRN (19:30)
[2025-03-10] MEDS ORDERED: ONDANSETRON HCL/PF 4 MG/2 ML VIAL IVP PRN (19:30)
[2025-03-10] MEDS ORDERED: MAGNESIUM HYDROXIDE 30 ML UDC PO PRN (19:30)
[2025-03-10] MEDS: CEFTRIAXONE 1 G in IV D5W 50 ML IV SCH (19:30)
[2025-03-10] MEDS ORDERED: AZITHROMYCIN 500 MG VIAL ONE (20:10)
[2025-03-10] MEDS: AZITHROMYCIN 500 MG in IV D5W 250 ML IV ONE (20:12)
[2025-03-10] MEDS: AZITHROMYCIN 500 MG in IV D5W 250 ML IV SCH (20:30)
[2025-03-10 23:00] VITALS: BP 152/91; TEMP 97.5; O2SAT 94
[2025-03-11] VITALS (7 sets, daily range): BP systolic 112–175; BP diastolic 83–97; TEMP 97.3–98.7; O2SAT 94–99
[2025-03-11] MEDS: IV NS 0.9% 1,000 ML IV PRN (00:05)
[2025-03-11] MEDS: DILTIAZEM HCL 25 MG IV IV ONE (01:58)
[2025-03-11 07:45] LABS: PLATELET COUNT (AUTO) 192 K/uL (150-450); RED BLOOD CELL COUNT(AUTO) 4.29 MIL/uL (4.5-6.0); RED CELL DISTRIBUTION WIDTH 14.2 % (11.5-15.0); WHITE BLOOD COUNT (AUTO) 6.0 K/uL (4.3-11.0)
[2025-03-11] MEDS ORDERED: ZOLP10TA2 PO (08:04)
[2025-03-11] MEDS ORDERED: TAMS-12 PO (08:04)
[2025-03-11] MEDS ORDERED: ALPR2TAB7 PO (08:04)
[2025-03-11] MEDS ORDERED: HYDR25TA4 PO (08:04)
[2025-03-11] MEDS ORDERED: ASPI-1420 PO (08:04)
[2025-03-11] MEDS ORDERED: METO25TA20 PO (08:04)
[2025-03-11] MEDS ORDERED: MIRT-90 PO (08:04)
[2025-03-11] MEDS ORDERED: ACET325T53 PO (08:06)
[2025-03-11 08:08] LABS: ASPARTATE AMINOTRANSFERASE 32 U/L (15-37); CALCIUM, SERUM 8.0 mg/dL (8.5-10.1); CREATININE 0.8 mg/dL (0.6-1.3); NT-PRO BNP 9452 pg/mL (0-125); PHOSPHORUS 2.7 mg/dL (2.5-4.9); SODIUM SERUM 134 mmol/L (136-145); TOTAL PROTEIN, SERUM 6.5 g/dL (6.4-8.2); UREA NITROGEN, BLOOD 17 mg/dL (7-18)
[2025-03-11] MEDS ORDERED: Z GUARD REMEDY 4 OZ OINT TP PRN (08:30)
[2025-03-11] MEDS: PANTOPRAZOLE 40 MG TABLET.DR PO SCH (09:01)
[2025-03-11] MEDS: Z GUARD REMEDY 4 OZ OINT TP SCH (09:05)
[2025-03-11] MEDS: POTASSIUM CHLORIDE 20 MEQ POWDER PACKET PO ONE (14:25)
[2025-03-11] MEDS: THERAHONEY GEL 1.5 OZ TUBE TP SCH (15:20)
[2025-03-11] MEDS: ENOXAPARIN SODIUM 40 MG/0.4 ML DISP.SYRIN SQ SCH (17:17)
[2025-03-11] MEDS: METOPROLOL TARTRATE 25 MG TABLET PO SCH (17:18)
[2025-03-11] MEDS ORDERED: AZITHROMYCIN 250 MG TABLET PO SCH (20:00)
[2025-03-11] MEDS: AZITHROMYCIN 500 MG in IV D5W 250 ML IV SCH (20:50)
[2025-03-11] MEDS: ATORVASTATIN 10 MG TABLET PO SCH (21:16)
[2025-03-11] MEDS: LORAZEPAM INJ 2 MG/ML VIAL IM ONE (23:59)
[2025-03-12] VITALS (10 sets, daily range): BP systolic 103–187; BP diastolic 72–127; TEMP 97.3–98.1; O2SAT 95–99
[2025-03-12] MEDS ORDERED: LORAZEPAM 4 MG/ML VIAL IM ONE
[2025-03-12] MEDS: CLONIDINE HCL 0.1 MG TABLET PO PRN (02:02)
[2025-03-12 08:04] LABS: PLATELET COUNT (AUTO) 226 K/uL (150-450); RED BLOOD CELL COUNT(AUTO) 4.63 MIL/uL (4.5-6.0); RED CELL DISTRIBUTION WIDTH 14.1 % (11.5-15.0); WHITE BLOOD COUNT (AUTO) 6.4 K/uL (4.3-11.0)
[2025-03-12 08:46] LABS: CALCIUM, SERUM 8.9 mg/dL (8.5-10.1); CREATININE 1.1 mg/dL (0.6-1.3); PHOSPHORUS 3.0 mg/dL (2.5-4.9); SODIUM SERUM 137.0 mmol/L (136-145); UREA NITROGEN, BLOOD 17.0 mg/dL (7-18)
[2025-03-12] MEDS: METOPROLOL TARTRATE 25 MG TABLET PO SCH (09:23)
[2025-03-12] MEDS: TAMSULOSIN 0.4 MG CAP.SR.24H PO SCH (09:23)
[2025-03-12] MEDS: HYDROCHLOROTHIAZIDE 25 MG TABLET PO SCH (09:23)
[2025-03-12] MEDS: LORAZEPAM INJ 2 MG/ML VIAL IV PRN (09:33)
[2025-03-12 12:10] LABS: LDL 96 mg/dL (0-99)
[2025-03-12] MEDS: ATORVASTATIN 40 MG TABLET PO SCH (12:24)
[2025-03-12] MEDS: ASPIRIN 81 MG TAB.CHEW PO SCH (12:24)
[2025-03-12] MEDS: CLOPIDOGREL BISULFATE 75 MG TABLET PO SCH (12:24)
[2025-03-12] MEDS: ZOLPIDEM TARTRATE 10 MG TABLET PO SCH (21:28)
[2025-03-12] MEDS: AZITHROMYCIN 250 MG TABLET PO SCH (21:28)
[2025-03-12] MEDS: MIRTAZAPINE 15 MG TABLET PO SCH (21:28)
[2025-03-13] VITALS (7 sets, daily range): BP systolic 112–176; BP diastolic 55–95; TEMP 98.1–101.1; O2SAT 95–99
[2025-03-13 07:56] LABS: PLATELET COUNT (AUTO) 208 K/uL (150-450); RED BLOOD CELL COUNT(AUTO) 4.84 MIL/uL (4.5-6.0); RED CELL DISTRIBUTION WIDTH 14.5 % (11.5-15.0); WHITE BLOOD COUNT (AUTO) 7.3 K/uL (4.3-11.0)
[2025-03-13 08:24] LABS: CALCIUM, SERUM 8.9 mg/dL (8.5-10.1); CREATININE 0.9 mg/dL (0.6-1.3); PHOSPHORUS 3.0 mg/dL (2.5-4.9); SODIUM SERUM 137.0 mmol/L (136-145); UREA NITROGEN, BLOOD 13.0 mg/dL (7-18)
[2025-03-13] MEDS: ACETAMINOPHEN 325 MG TABLET PO PRN (17:45)
[2025-03-14] VITALS: BP 115/60; TEMP 98.5; O2SAT 99
[2025-03-14 04:00] VITALS: BP 110/56; TEMP 98.9; O2SAT 99
[2025-03-14 08:00] VITALS: BP 157/64; TEMP 97.1; O2SAT 97
[2025-03-14 12:00] VITALS: BP 110/60; TEMP 97.9; O2SAT 97
[2025-03-14] MEDS ORDERED: IOHEXOL-300 100 ML VIAL IV ONE (17:30)
[2025-03-14 18:57] VITALS: BP 172/86; TEMP 98.1; O2SAT 97
[2025-03-14 20:00] VITALS: BP 173/89; TEMP 97.7; O2SAT 95
[2025-03-15] VITALS: BP 150/71; TEMP 98.1; O2SAT 100
[2025-03-15 04:00] VITALS: BP 126/47; TEMP 97.6; O2SAT 95
[2025-03-15 08:00] VITALS: BP 136/106; TEMP 97.5
[2025-03-15 12:00] VITALS: BP 145/95; TEMP 97.5; O2SAT 98
[2025-03-15] MEDS: LORAZEPAM 1 MG TABLET PO ONE (13:05)
[2025-03-15 16:00] VITALS: BP 140/77; TEMP 98.1; O2SAT 97
[2025-03-15 20:00] VITALS: BP 129/63; TEMP 97.9; O2SAT 97
[2025-03-16] VITALS: BP 146/86; TEMP 97.5; O2SAT 98
[2025-03-16 04:00] VITALS: BP 133/89; TEMP 97.7; O2SAT 99
[2025-03-16 07:45] LABS: PLATELET COUNT (AUTO) 195 K/uL (150-450); RED BLOOD CELL COUNT(AUTO) 4.71 MIL/uL (4.5-6.0); RED CELL DISTRIBUTION WIDTH 14.5 % (11.5-15.0); WHITE BLOOD COUNT (AUTO) 5.0 K/uL (4.3-11.0)
[2025-03-16 08:00] VITALS: BP 130/71; TEMP 97.7; O2SAT 98
[2025-03-16 08:07] LABS: CALCIUM, SERUM 8.8 mg/dL (8.5-10.1); CREATININE 1.1 mg/dL (0.6-1.3); SODIUM SERUM 135.0 mmol/L (136-145); UREA NITROGEN, BLOOD 24.0 mg/dL (7-18)
[2025-03-16] MEDS: POTASSIUM CHLORIDE 20 MEQ TAB.PRT.SR PO SCH (11:42)
[2025-03-16 12:00] VITALS: BP 133/74; TEMP 97.2; O2SAT 100
[2025-03-16 16:00] VITALS: BP 126/71; TEMP 97.2; O2SAT 98
[2025-03-16 20:00] VITALS: BP 138/72; TEMP 98.6; O2SAT 98
[2025-03-17 07:00] VITALS: BP 119/68; TEMP 97.5; O2SAT 97
[2025-03-17 07:44] LABS: PLATELET COUNT (AUTO) 197 K/uL (150-450); RED BLOOD CELL COUNT(AUTO) 4.31 MIL/uL (4.5-6.0); RED CELL DISTRIBUTION WIDTH 14.2 % (11.5-15.0); WHITE BLOOD COUNT (AUTO) 5.3 K/uL (4.3-11.0)
[2025-03-17 08:00] VITALS: BP 124/65; TEMP 98.2
[2025-03-17 08:01] LABS: CALCIUM, SERUM 8.6 mg/dL (8.5-10.1); CREATININE 1.4 mg/dL (0.6-1.3); SODIUM SERUM 137.0 mmol/L (136-145); UREA NITROGEN, BLOOD 29.0 mg/dL (7-18)
[2025-03-17 16:00] VITALS: BP 125/63; TEMP 97.5; O2SAT 97
[2025-03-18 08:00] VITALS: BP 154/89; TEMP 97.7; O2SAT 99
[2025-03-18 08:11] LABS: PLATELET COUNT (AUTO) 210 K/uL (150-450); RED BLOOD CELL COUNT(AUTO) 4.46 MIL/uL (4.5-6.0); RED CELL DISTRIBUTION WIDTH 14.5 % (11.5-15.0); WHITE BLOOD COUNT (AUTO) 6.3 K/uL (4.3-11.0)
[2025-03-18 08:43] LABS: CALCIUM, SERUM 8.9 mg/dL (8.5-10.1); CREATININE 1.2 mg/dL (0.6-1.3); SODIUM SERUM 138.0 mmol/L (136-145); UREA NITROGEN, BLOOD 29.0 mg/dL (7-18)
[2025-03-18] MEDS ORDERED: ATOR40TA PO (11:50)
[2025-03-18] MEDS ORDERED: CLOP75TA15 PO (11:54)
[2025-03-18 16:00] VITALS: BP 131/84; TEMP 97.8; O2SAT 96
[2025-03-18 20:00] VITALS: BP 149/81; TEMP 97.3; O2SAT 99
[2025-03-19 08:00] VITALS: BP 131/78; TEMP 97.2; O2SAT 98
[2025-03-19 16:00] VITALS: BP 139/80; TEMP 97.5; O2SAT 99
[2025-03-19 20:00] VITALS: BP 105/67; TEMP 98.1; O2SAT 97
[2025-03-20 07:00] VITALS: BP 146/84; TEMP 97.5; O2SAT 92
[2025-03-20 15:00] VITALS: BP 110/84; TEMP 98.4; O2SAT 100
[2025-03-20 20:00] VITALS: BP 129/91; TEMP 97.5; O2SAT 98
[2025-03-21 09:17] VITALS: BP_SYST 122; BP_SYST 170; BP_DIAS 85; BP_DIAS 95; TEMP 97.5; TEMP 98.1; O2SAT 100; O2SAT 97
[2025-03-21 20:00] VITALS: BP 137/80; TEMP 97.5; O2SAT 98
[2025-03-22 07:00] VITALS: BP 145/83; TEMP 98.1; O2SAT 99
[2025-03-22 08:13] VITALS: BP 145/50; TEMP 98.1; O2SAT 99
[2025-03-22 16:00] VITALS: BP 123/72; TEMP 98.9; O2SAT 99
[2025-03-22 16:46] VITALS: BP 123/72; TEMP 98; O2SAT 99
[2025-03-22 22:10] VITALS: BP 97/59; TEMP 98.9; O2SAT 98
[2025-03-23 08:00] VITALS: BP 129/105; TEMP 98.2; O2SAT 99
[2025-03-23 08:17] VITALS: BP 129/105; TEMP 98.2; O2SAT 99
[2025-03-23 08:18] VITALS: BP 129/105
== END 2025-03-23 15:00 | DRG 64 ==
LOC: ER 16:54 → EDBD 22:02 → TELE 22:02 → MED 03-16 10:02
PROVIDERS: ADMIT Nurse Practitioner Family; ATTEND Nurse Practitioner Acute Care
DX: I63.232 Cerebral infarction due to unspecified occlusion or stenosis of left carotid arteries (principal); G93.41 Metabolic encephalopathy; E87.20 Acidosis, unspecified; E87.1 Hypo-osmolality and hyponatremia; I16.0 Hypertensive urgency; L89.621 Pressure ulcer of left heel, stage 1; B35.1 Tinea unguium; I73.9 Peripheral vascular disease, unspecified; N17.9 Acute kidney failure, unspecified; E86.0 Dehydration; I10 Essential (primary) hypertension; E80.6 Other disorders of bilirubin metabolism; R73.9 Hyperglycemia, unspecified; S91.012A Laceration without foreign body, left ankle, initial encounter; X58.XXXA Exposure to other specified factors, initial encounter; Y93.9 Activity, unspecified; Y92.009 Unspecified place in unspecified non-institutional (private) residence as the place of occurrence of the external cause; R74.01 Elevation of levels of liver transaminase levels; R09.89 Other specified symptoms and signs involving the circulatory and respiratory systems; N14.11 Contrast-induced nephropathy
CPT/HCPCS: 36415; 70450-TC; 70491-TC; 70551-TC; 71045-TC; 71250-TC; 80048-TC; 80061-TC; 80076-TC; 81001; 82140-TC; 82962-TC; 83605-TC; 83735-TC; 83880; 84100-TC; 84443-TC; 84484-TC; 85025-TC; 85730-TC; 87040-TC; 87081-TC; 87086-TC; 93307-TC; 93880-TC; 97110-TC; 97112-TC; 97116-TC; 97530-TC; 97535-TC; A4223; A6213; A6253; A6254; A6403; G0378; G0480; J0456; J0696; J1650; J2060; J3490; J7030; J7050; J7060; Q9967